=== PATIENT | male | born 1945 | race Caucasian/White ===

== ENCOUNTER 2021-07-22 13:21 | Outpatient (CLI) | payer MEDICARE | END 2021-07-22 13:22 | disposition home or self-care (01) | LOC: CSHULT 13:21 | PROVIDERS: ATTEND Family Medicine | DX: E04.9 Nontoxic goiter, unspecified (principal); E04.1 Nontoxic single thyroid nodule; E04.2 Nontoxic multinodular goiter | CPT/HCPCS: 76536 ==